=== PATIENT | male | born 1955 | race Caucasian/White ===

== ENCOUNTER 2025-03-01 21:49 | Emergency (ER) | payer MEDICARE ==
[~2025-03-01] VITALS: Ht 188 cm; Wt 131.4 kg
[2025-03-01 22:49] VITALS: BP 134/82
[2025-03-01] MEDS: ACETAMINOPHEN 500 MG TAB PO ONE (23:33)
[2025-03-02 00:01] LABS: KETONE, URINE AUTO RFX NEGATIVE (NEGATIVE); LEUKOCYTE ESTERASE UR AUTO RFX NEGATIVE (NEGATIVE); RBC, URINE AUTO RFX 24 /HPF (0-3); SQUAM EPITHELIAL CELL UR AURFX 0 /HPF (0-6); WBC, URINE AUTO RFX 0 /HPF (0-3)
[2025-03-02 00:04] LABS: NITRITE, URINE AUTO RFX POSITIVE (NEGATIVE)
[2025-03-02] MEDS ORDERED: CEFD1CAP9 PO (00:34)
[2025-03-02] MEDS: CEFDINIR 300 MG CAP (OMNICEF) PO ONE (01:09)
[2025-03-02 02:04] VITALS: TEMP 97.8; O2SAT 99
== END 2025-03-02 02:10 | disposition home or self-care (01) ==
LOC: M ED 21:49 → EDBD 21:49 → M ED 03-02 02:10
DX: N39.0 Urinary tract infection, site not specified (principal); R33.9 Retention of urine, unspecified; Z79.2 Long term (current) use of antibiotics